=== PATIENT | female | born 1995 | race Caucasian/White ===

== ENCOUNTER 2019-05-08 09:05 | Inpatient (IN) | payer BC ==
[2019-05-08] MEDS ORDERED: OXYCODONE/ASPIRIN (4.88/325) TAB PO (10:00)
[2019-05-08] MEDS ORDERED: METHYLERGONOVINE 0.2 MG INJ IM (10:00)
[2019-05-08] MEDS ORDERED: CARBOPROST 250 MCG INJ IM (10:00)
[2019-05-08] MEDS ORDERED: MISOPROSTOL 200 MCG TAB PR (10:00)
[2019-05-08] MEDS ORDERED: LIDOCAINE 1% (MPF) 30 ML INJ INJ (10:00)
[2019-05-08] MEDS ORDERED: OXYTOCIN 30 UNITS/LR 500 ML IV ×2 (10:00)
[2019-05-08] MEDS: MISOPROSTOL 50 MCG CAPSULE PO ×3 (10:34→20:45)
[2019-05-08] MEDS: LACTATED RINGER'S 1,000 ML IV ×2 (10:35→19:04)
[2019-05-08] MEDS: BUTORPHANOL 2 MG INJ IV (19:02)
[2019-05-09] MEDS: LACTATED RINGER'S 1,000 ML IV ×4 (03:40→19:39)
[2019-05-09] MEDS: DEXTROSE 5%-LR 1,000 ML IV ×4 (05:17→19:43)
[2019-05-09] MEDS ORDERED: ONDANSETRON 4 MG INJ IV ×3 (07:00→22:00)
[2019-05-09] MEDS ORDERED: OXYTOCIN 30 UNITS/LR 500 ML IV ×2 (07:00→22:00)
[2019-05-09] MEDS ORDERED: FENTAnyl 2MCG/ML-ROPIV 0.2% 100 ML (07:38)
[2019-05-09] MEDS ORDERED: NALBUPHINE HCL (10 MG/1 ML) INJ IV (08:30)
[2019-05-09] MEDS ORDERED: NALOXONE (0.4 MG/ML) INJ IV (08:30)
[2019-05-09] MEDS: OXYTOCIN 30 UNITS/LR 500 ML IV ×4 (10:41→21:53)
[2019-05-09] MEDS: FENTAnyl 2MCG/ML-ROPIV 0.2% 100 ML BAG EPI ×2 (13:20→19:41)
[2019-05-09] MEDS: MISOPROSTOL 50 MCG CAPSULE PO ×3 (19:38→22:00)
[2019-05-09] MEDS ORDERED: MINERAL OIL LIGHT 10 ML VIAL TOP (19:40)
[2019-05-09] MEDS: MINERAL OIL LIGHT 10 ML VIAL TOP (21:59)
[2019-05-09] MEDS ORDERED: MISOPROSTOL 200 MCG TAB PR (22:00)
[2019-05-09] MEDS ORDERED: NACL 0.9% 3 ML SYG IV (22:00)
[2019-05-09] MEDS ORDERED: METHYLERGONOVINE 0.2 MG INJ IM (22:00)
[2019-05-09] MEDS ORDERED: HYDROCODONE/APAP (5/325) TAB PO (22:00)
[2019-05-09] MEDS ORDERED: ZOLPIDEM 5 MG TAB PO (22:00)
[2019-05-09] MEDS ORDERED: CARBOPROST 250 MCG INJ IM (22:00)
[2019-05-10] MEDS: LEVOTHYROXINE 75 MCG TAB PO (08:34)
[2019-05-10] MEDS: SENNA/DOCUSATE NA (8.6MG/50MG) TAB PO ×2 (09:00→21:04)
[2019-05-10] MEDS ORDERED: NALOXONE (0.4 MG/ML) INJ IV (13:30)
[2019-05-11] MEDS: HYDROCODONE/APAP (5/325) TAB PO (01:31)
[2019-05-11] MEDS: SENNA/DOCUSATE NA (8.6MG/50MG) TAB PO (09:14)
[2019-05-11] MEDS: LEVOTHYROXINE 75 MCG TAB PO (09:14)
== END 2019-05-11 16:10 | disposition home or self-care (01) | DRG 805 ==
LOC: L-D 09:05 → PP1 05-09 23:20
PROC: 10E0XZZ Delivery of Products of Conception, External Approach (ICD-10-PCS; principal; 2019-05-09)
PROC: 0KQM0ZZ Repair Perineum Muscle, Open Approach (ICD-10-PCS; 2019-05-09)
PROC: 10907ZC Drainage of Amniotic Fluid, Therapeutic from Products of Conception, Via Natural or Artificial Opening (ICD-10-PCS; 2019-05-09)
DX: O70.1 Second degree perineal laceration during delivery (principal); O24.02 Pre-existing type 1 diabetes mellitus, in childbirth; Z37.0 Single live birth; E10.9 Type 1 diabetes mellitus without complications; O99.213 Obesity complicating pregnancy, third trimester; O99.283 Endocrine, nutritional and metabolic diseases complicating pregnancy, third trimester; Z79.4 Long term (current) use of insulin; Z3A.39 39 weeks gestation of pregnancy
CPT/HCPCS: 62322; 82947; 82962; 85014; 85018; 85025; 85610; 85730; 86592; 86850; 86900; 86901; 87340